=== PATIENT | male | born 1950 | race Caucasian/White ===

== ENCOUNTER → 2016-11-23 | Outpatient (CLI) | payer BC, OTHER ==
[~2016-11-23] MED LIST: ASPIR 8181 MG PO; B COMPLEX1 EAC1 PO; FISH OIL OMEGA1 EAC1 PO; FLEXERIL PO; FLOMAX0.4 MG PO; FLONASE 0.05%50 MCG NASAL; HYDROCODON-ACE1 EAC7 PO; LEVOCETIRIZINE D5 MG PO; LIPITOR10 MG PO; MULTIVITAMINS1 EAC7 PO; NORCO 5-325 TA1 EACH PO; NORVASC10 MG PO; PROSCAR 5MG TABL5 MG PO; VITAMIN D1000 UNI1 PO; ZESTORETIC 20-1 EAC3 PO
== END ==
LOC: MRI 12:02
DX: M51.16 Intervertebral disc disorders with radiculopathy, lumbar region (principal); M48.07 Spinal stenosis, lumbosacral region; M51.34 Other intervertebral disc degeneration, thoracic region; M51.35 Other intervertebral disc degeneration, thoracolumbar region

== ENCOUNTER → 2018-08-02 | Outpatient (CLI) | payer OTHER ==
--- NOTE | 2018-08-02 10:43 | 2DMMODE ---
[facility] [place] [address] 2 D/M-MODE ECHOCARDIOGRAM Name: MAHENDRA COLIN Room #: REG [facility]#: [id number] ������������� Admission: 08/02/18 ������������� Attend Phys: STEPHEN Johnson Discharge: ��� ������������� ��� Date of : 48 Date of Service: 08/02/18 1043 �� Report #: [id number] �������� ��������������������������������������������[id number] THIS REPORT FOR: //name// APPROVED REPORT Study performed: 08/02/2018 09:48:00 EXAM: Comprehensive 2D, Doppler, and color-flow Echocardiogram Patient Location: Out-Patient Room #: Echo lab 2 Status: routine BSA: 1.94 HR: 61 bpm BP: 118/62 mmHg Rhythm: NSR Other Information Study Quality: Adequate Indications Abnormal ECG Hypertension/HDD 2D Dimensions RVDd: 40.55 mm IVSd: 8.93 (7-11mm) LVOT Diam: 18.36 (18-24mm) LVDd: 44.40 mm PWd: 10.38 (7-11mm) Ascending Ao: 36.64 (22-36mm) LVDs: 29.36 (25-40mm) Aortic Root: 29.03 mm IVC: 16.00 mm Volumes Left Atrial Volume (Systole) Single Plane 4CH: 30.28 mL Single Plane 2CH: 31.67 mL LA ESV Index: 19.00 mL/m2 Aortic Valve AoV Peak Patrick.: 1.63 m/s AO Peak Gr.: 10.68 mmHg LVOT Max P.98 mmHg LVOT Max V: 1.22 m/s CLARISSA Vmax: 1.98 cm2 Mitral Valve E/A Ratio: 0.9 MV Decel. Time: 249.48 ms [facility] [place] [address] 2 D/M-MODE ECHOCARDIOGRAM Name: MAHENDRA COLIN Room #: [facility]#: [id number] ������������� Admission: 08/02/18 ������������� Attend Phys: STEPHEN Johnson Discharge: ��� ������������� ��� Date of : 48 Date of Service: 08/02/18 1043 �� Report #: [id number] �������� ��������������������������������������������[id number] E Max Patrick.: 0.75 m/s MV A Patrick.: 0.86 m/s MV PHT: 72.35 ms IVRT: 119.95 ms Pulmonary Valve PV Peak Patrick.: 0.99 m/s PV Peak Gr.: 3.91 mmHg Pulmonary Vein P Vein S: 0.48 m/s P Vein A: 0.29 m/s P Vein D: 0.36 m/s P Vein A Dur.: 129.2 msec P Vein S/D Ratio: 1.33 Tricuspid Valve TR Peak Patrick.: 2.73 m/s TR Peak Gr.: 29.78 mmHg PA Pressure: 35.00 mmHg Left Ventricle The left ventricle is normal size. There is normal LV segmental wall motion. There is normal left ventricular wall thickness. The left ventricular systolic function is normal. The left ventricular ejection fraction is within the normal range. LVEF is 60-65%. Grade I - abnormal relaxation pattern. Right Ventricle The right ventricle is normal size. The right ventricular systolic function is normal. Atria The left atrium size is normal. Right atrium is dilated. Aortic Valve The aortic valve is normal in structure. No aortic regurgitation is present. There is no aortic valvular stenosis. Mitral Valve The mitral valve is normal in structure. Trace mitral regurgitation. No evidence of mitral valve stenosis. Tricuspid Valve The tricuspid valve is normal in structure. There is trace tricuspid regurgitation. Estimated PAP 35 mmHg. There is mild pulmonary hypertension. Pulmonic Valve [address] [address] 2 D/M-MODE ECHOCARDIOGRAM Name: SHIRA COLINMICHI Antonio Room #: REG [facility]#: [id number] ������������� Admission: 08/02/18 ������������� Attend Phys: STEPHEN Johnson Discharge: ��� ������������� ��� Date of : 48 Date of Service: 08/02/18 1043 �� Report #: [id number] �������� ��������������������������������������������[id number] The pulmonary valve is normal in structure. There is no pulmonic valvular regurgitation. Great Vessels The aortic root is normal in size. IVC is normal in size and collapses >50% with inspiration. Pericardium There is no pericardial effusion. <Conclusion> The left ventricle is normal size. LVEF is 60-65%. The aortic valve is normal in structure. The mitral valve is normal in structure. Trace mitral regurgitation. The tricuspid valve is normal in structure. There is trace tricuspid regurgitation. Estimated PAP 35 mmHg. There is mild pulmonary hypertension. The pulmonary valve is normal in structure. There is no pericardial effusion. ��������������������������������������������� <ELECTRONICALLY SIGNED> ���������������������������������������� By: Blake Israel MD ��������������������������������������������� 08/02/18 1043 1043 1043 Blake Israel MD /INF
== END ==
LOC: CV 09:22
DX: I27.20 Pulmonary hypertension, unspecified (principal); I10 Essential (primary) hypertension; E78.5 Hyperlipidemia, unspecified

== ENCOUNTER → 2019-10-30 | Outpatient (CLI) | payer OTHER | LOC: MRI 08:46 | PROVIDERS: ATTEND Family Medicine | DX: M51.27 Other intervertebral disc displacement, lumbosacral region (principal); G89.29 Other chronic pain; M48.07 Spinal stenosis, lumbosacral region; M51.25 Other intervertebral disc displacement, thoracolumbar region; M48.05 Spinal stenosis, thoracolumbar region; M25.78 Osteophyte, vertebrae; M47.816 Spondylosis without myelopathy or radiculopathy, lumbar region ==

== ENCOUNTER → 2019-11-09 | Outpatient (CLI) | payer OTHER ==
[~2019-11-09] VITALS: Ht 175.3 cm; Wt 90.7 kg
[~2019-11-09] MED LIST changes: -FISH OIL OMEGA1 EAC1 PO; +FISH OIL OMEGA1 EAC3 PO; +NEURONTIN 300M300 M2 PO
[2019-11-09 13:37] VITALS: BP 144/69
--- NOTE | 2019-11-09 13:39 | NUR ---
Pain Clinic Assessment: 1. History of Osteoarthritis: HANDS KNEES History of Rheumatoid Arthritis: Not Applicable 2. Height: 5 ft. 9 in. 175.3 cm. Weight: 200.0 lb. oz. 90.720 kg. Patient's BMI: 29.5 3. Vital Signs: BP: 144/69 Pulse: 72 Resp: 16 Temp: 02 Sat: 92 ECG Mon: 4. Pain Intensity: 7 5. Fall Risk: Dizziness: Needs help standing or walking: Fallen in the last 3 months: Fall risk comments: 6. Patient on Blood Thinner: None 7. History of Hypertension: Y 8. Opioid Therapy greater than 6 weeks: Y Opiate Contract Signed: 9. Risk Assessment Tool Provided: LOW-0 10. Functional Assessment Tool: 11. Recreational Drug Use: Never Drug Type: Tobacco Use: Former Smoker Tobacco Type: Amount or Packs/day: How Many Years: Alcohol Use: Yes Frequency: Weekly Quant: 1-2
--- NOTE | 2019-11-26 00:09 | HPC ---
[facility] [address] [place] [address] PAIN MANAGEMENT CONSULTATION Name: MAHENDRA COLIN Room #: REG [facility]#: [id number] Admission: 11/09/19 Attend Phys: Roxana Sharp MD Discharge: Date of : 48 Report #: [id number] THIS REPORT FOR: cc: Richard Pedroza MD, Neal A. MD Brown,Roxana Christianson MD ~ CC: Roxana Pedroza DATE OF SERVICE: 11/09/2019 CHIEF COMPLAINT: "Low back pain that gets worse when I am walking or standing." HISTORY: The patient is a 69-year-old gentleman who has been referred to the pain clinic for evaluation of left back and knee pain. The patient has a history of back pain. He underwent a lumbar laminectomy a few years ago. He has been having pain and discomfort in the low back area. He is walking with a cane. Feels that he uses this for balance. Feels like someone has struck him and in his side. Standing is problematic. Notes that there is pain in his back and radiates down into his calf. Pain sometimes wakes him from sleep at night. Pain is exacerbated by walking. He has undergone physical therapy. He continues to have pain in spite of this. He has had problems since 2016. This episode started in 06/2019. There is a burning, constant, shooting, sharp discomfort. He rates it as 7/10. ALLERGIES: No known drug allergies. CURRENT MEDICATIONS: Flexeril 10 mg t.i.d., hydrocodone 5/325 q.6 hours p.r.n., aspirin 81 mg, vitamin D 1000 units, multivitamins, vitamin B complex, fish oil, Flonase 0.5% nasal spray, Lipitor 10 mg, Proscar 5 mg, Flomax 4 mg, amlodipine 10 mg, lisinopril/hydrochlorothiazide 20/12.5, levocetirizine 5 mg. PAST MEDICAL HISTORY: Hypertension, hypercholesterolemia, and prostate enlargement. PAST SURGICAL HISTORY: Appendectomy 1962, lumbar spine surgery 2016, neck surgery 2017. SOCIAL HISTORY: He is retired. He is a former smoker, quit greater than 10 years ago. Socially drinks alcohol. REVIEW OF SYSTEMS: Denies fatigue, fever, weight gain. Otherwise, he gets up to urinate at night. Otherwise, unremarkable. PAIN CLINIC ASSESSMENT AND PQRS: 1. The patient is not being [place] [address] PAIN MANAGEMENT CONSULTATION Name: MAHENDRA COLIN [id number] Admission: 11/09/19 Attend Phys: Roxana Sharp MD Discharge: Date of : 48 Report #: [id number] 2. Vital Signs: Blood pressure 144/69, heart rate 72, respiratory rate 16, room air saturation 92%, weight 200 pounds, BMI is 29. 3. Blood thinner. The patient is not on a blood thinning medication. 4. Hypertension. The patient is being treated for hypertension. 5. Fall, the patient has not fallen in the last month. 6. Opioids. The patient receives medications from his primary physician. 7. Opioid evaluation. The patient does not appear to have a problem with opioid medications. 8. Tobacco: The patient stopped smoking 10 years ago. 9. Alcohol. The patient denies significant alcohol use. PHYSICAL EXAMINATION: GENERAL: The patient is a well-developed, well-nourished white male. Appears his stated age. He is alert and oriented x 3. His affect is appropriate. Speech is fluent. HEENT: Normocephalic, atraumatic. Extraocular eye muscles intact. Sclerae nonicteric. Mucous membranes are moist. The patient has some hearing loss. Has ringing in his ears. NECK: Without adenopathy. Well-healed scar in the anterior portion of his neck. EXTREMITIES: Muscle strength in the upper extremity, judged to be 5-/5 for the major muscle groups in the upper extremity. The patient without significant scoliosis, kyphosis or lordosis. Well-healed scar in the lower portion of his back. The patient complains of pain and discomfort that radiates down into his left leg with some weakness, numbness and tingling. IMPRESSION: 1. Lumbar radiculopathy, L4-L5 area. 2. Hypertension. 3. Hypercholesterolemia. 4. Prostate enlargement. RECOMMENDATIONS: At this juncture, we will try a conservative approach. The patient has been provided with hydrocodone 5/325 one p.o. t.i.d. Possibility of an epidural steroid injection is an option in the future. We would like to thank you for letting us participate in his care. We hope he continues to improve. <ELECTRONICALLY SIGNED> By: Roxana Sharp MD 11/26/19 [id number] Roxana Sharp MD /nt
== END ==
LOC: PAIN 06:53
PROVIDERS: ATTEND Anesthesiology Pain Medicine
DX: M54.16 Radiculopathy, lumbar region (principal); I10 Essential (primary) hypertension; E78.00 Pure hypercholesterolemia, unspecified; N40.1 Benign prostatic hyperplasia with lower urinary tract symptoms; Z79.899 Other long term (current) drug therapy

== ENCOUNTER → 2020-01-04 | Outpatient (CLI) | payer OTHER | LOC: SJCVC 13:09 | PROVIDERS: ATTEND Internal Medicine | DX: I10 Essential (primary) hypertension (principal); E78.00 Pure hypercholesterolemia, unspecified; I45.10 Unspecified right bundle-branch block; R94.31 Abnormal electrocardiogram [ECG] [EKG]; Z90.49 Acquired absence of other specified parts of digestive tract ==

== ENCOUNTER → 2020-04-07 | Outpatient (CLI) | payer OTHER | LOC: SJCVC 10:13 | PROVIDERS: ATTEND Internal Medicine | DX: I45.10 Unspecified right bundle-branch block (principal); I10 Essential (primary) hypertension; Z98.890 Other specified postprocedural states; Z79.899 Other long term (current) drug therapy; Z87.891 Personal history of nicotine dependence ==

== ENCOUNTER → 2020-06-27 | Outpatient (CLI) | payer OTHER | LOC: LAB 09:02 | PROVIDERS: ATTEND Family Medicine | DX: R05 Cough (principal); Z20.822 Contact with and (suspected) exposure to COVID-19 ==

== ENCOUNTER → 2020-08-05 | Outpatient (CLI) | payer OTHER ==
[2020-08-05 12:35] LABS: CREATININE 1.1 mg/dL (0.7-1.3)
== END ==
LOC: CAT 11:33
PROVIDERS: ATTEND Nurse Practitioner
DX: I25.10 Atherosclerotic heart disease of native coronary artery without angina pectoris (principal); R06.02 Shortness of breath; R91.8 Other nonspecific abnormal finding of lung field; J90 Pleural effusion, not elsewhere classified; R60.0 Localized edema; E27.8 Other specified disorders of adrenal gland; I77.89 Other specified disorders of arteries and arterioles

== ENCOUNTER → 2020-08-11 | Outpatient (CLI) | payer OTHER | LOC: LAB 10:30 | PROVIDERS: ATTEND Internal Medicine | DX: Z01.812 Encounter for preprocedural laboratory examination (principal); Z20.822 Contact with and (suspected) exposure to COVID-19 ==